=== PATIENT | female | born 1980 | race Hispanic/Latino ===

== ENCOUNTER → 2017-11-19 | Day surgery (SDC) | payer BC ==
[~2017-11-19] MED LIST: BREO INH; CEFAZOLIN SOD 1 GM VIAL ONE; FENTANYL CITRATE/PF 100MCG/2 ML INJ ONE; HYDROCORTISONE SOD SUCCINATE 100 MG VIAL ONE; HYDROGEN PEROXIDE 120 ML BTL ONE; L-THREONINE500 MG PO; LIDOCAINE 1% W/EPINEPHRINE 20 ML VIAL ONE; LIDOCAINE 2%/ EPINEPHRINE 20ML MDV ONE; LIDOCAINE HCL 1% 30ML-PF VIAL ONE; LIDOCAINE HCL 2% LOCAL INJ 5 ML SDV VIAL INJ ONE; MAGNESIUM OXID400 MG PO; MESTINON60 MG PO; MIDAZOLAM HCL 2 MG/2 ML VIAL ONE; MUPIROCIN 2% OINT 22 GM TUBE ONE; PANTOPRAZOLE SO40 MG PO; POTASSIUM PO; PREDNISONE10 MG PO; PROPOFOL IV EMULSION 10 MG/ML 20 ML VIAL ONE; VIT C PO; VIT D3 PO
[2017-11-19 10:30] VITALS: BP 118/72
--- NOTE | 2017-11-20 07:24 | Operative Report ---
DATE OF PROCEDURE: November 19, 2017 PREOPERATIVE DIAGNOSIS: Basal cell carcinoma, scalp. POSTOPERATIVE DIAGNOSIS: Basal cell carcinoma, scalp. PROCEDURES 1. Excision of basal cell carcinoma, scalp. 2. Flap closure. ANESTHESIA: MAC/local. HISTORY: Patient is a 37-year-old female, who underwent excision of a lesion on the frontal aspect of the scalp several weeks ago. The path report indicated that this was a basal cell carcinoma, incompletely excised. The risks, benefits, and alternatives of treatment were discussed with the patient. She is prepared to undergo the procedures outlined. PROCEDURE: Patient was marked preoperatively in the holding area. She was brought to the operating theater. After induction of adequate IV sedation, she was prepped and draped in a supine position. A time-out was performed. The procedure is begun by marking out the previous excision site and using 0.5-cm margins all the way around. At this point, the scalp and subcutaneous tissues were then infiltrated with 1% Xylocaine with epinephrine. A total of 6 mL was used. After waiting appropriate amount of time for maximum vasoconstrictive effect, the incisions were made through the scalp, through the skin, and subcutaneous tissues. The specimen is removed and it was then oriented with sutures and sent for frozen section. In the meantime, the wound was made hemostatic using the electrocautery and a saline-soaked gauze was placed in the wound. The frozen section report revealed there was basal cell carcinoma in the specimen; however, all of the margins were noted to be clear. At this point, the defect was too large to be closed primarily without significant tension. For this reason, it was undermined widely and then, released. Incisions made in order to allow the lateral flaps to come together without tension. The scalp was then repaired using 4-0 Prolene interrupted horizontal mattress fashion. Bactroban ointment was placed on the wound. The patient tolerated the procedure well. The estimated blood loss for procedure was 10 to 15 mL. He was returned to recovery room in satisfactory condition and discharged with a postoperative instruction sheet, as well as a followup appointment. Job#: [id number]
== END | disposition home or self-care (01) ==
LOC: OR 07:16
PROVIDERS: ATTEND Plastic Surgery
DX: C44.41 Basal cell carcinoma of skin of scalp and neck (principal); J45.909 Unspecified asthma, uncomplicated; G70.00 Myasthenia gravis without (acute) exacerbation; K21.9 Gastro-esophageal reflux disease without esophagitis
CPT/HCPCS: 14020; 81025; 88305; 88331; J0690; J1720; J2001; J2250

== ENCOUNTER 2020-04-03 18:37 | Emergency (ER) | payer BC, OTHER ==
[~2020-04-03] VITALS: Ht 154.9 cm; Wt 56.7 kg
[~2020-04-03 18:37] MED LIST changes: -CEFAZOLIN SOD 1 GM VIAL ONE; -FENTANYL CITRATE/PF 100MCG/2 ML INJ ONE; -HYDROCORTISONE SOD SUCCINATE 100 MG VIAL ONE; -HYDROGEN PEROXIDE 120 ML BTL ONE; -LIDOCAINE 1% W/EPINEPHRINE 20 ML VIAL ONE; -LIDOCAINE 2%/ EPINEPHRINE 20ML MDV ONE; -LIDOCAINE HCL 1% 30ML-PF VIAL ONE; -LIDOCAINE HCL 2% LOCAL INJ 5 ML SDV VIAL INJ ONE; -MIDAZOLAM HCL 2 MG/2 ML VIAL ONE; -MUPIROCIN 2% OINT 22 GM TUBE ONE; -PROPOFOL IV EMULSION 10 MG/ML 20 ML VIAL ONE
== END 2020-04-03 21:02 | disposition home or self-care (01) ==
LOC: ER 19:11
DX: S01.311A Laceration without foreign body of right ear, initial encounter (principal); W01.198A Fall on same level from slipping, tripping and stumbling with subsequent striking against other object, initial encounter; Y93.01 Activity, walking, marching and hiking; Y92.008 Other place in unspecified non-institutional (private) residence as the place of occurrence of the external cause; J45.909 Unspecified asthma, uncomplicated; K21.9 Gastro-esophageal reflux disease without esophagitis; Z85.828 Personal history of other malignant neoplasm of skin
CPT/HCPCS: 70450; 70486; 72125; 99283